=== PATIENT | female | born 1965 | race Caucasian/White ===

== ENCOUNTER 2019-07-03 13:02 | Emergency (ER) | payer SELFPAY ==
[~2019-07-03] VITALS: Ht 165.1 cm; Wt 72.8 kg
[~2019-07-03 13:02] MED LIST: ALBU18HF INHALATION; ALBU8.5H8 INH; CETI10CA PO; GUAI473L22 PO; HYDR-3498 PO; IBUP-1561 PO; PRED20TA PO; PRED50TA PO; ZOF8 PO
[2019-07-03 13:05] VITALS: Ht 165.1 cm; Wt 72.8 kg
[2019-07-03] MEDS ORDERED: ALBUTEROL 0.083% (NEB) 2.5 MG/3 ML AMP NEB STA (13:25)
[2019-07-03] MEDS ORDERED: IPRATROPIUM (NEB) 0.5 MG/2.5 ML AMP NEB STA (13:25)
[2019-07-03] MEDS ORDERED: predniSONE 20 MG TAB PO STA (13:25)
[2019-07-03 14:27] VITALS: BP 138/76; PULSE 92; RESP 20
== END 2019-07-03 14:28 | disposition home or self-care (01) ==
LOC: FTE 13:02
DX: J45.901 Unspecified asthma with (acute) exacerbation (principal)
CPT/HCPCS: 94664; 99283; J7512